=== PATIENT | female | born 1960 | race African-American/Black ===

== ENCOUNTER → 2017-08-20 | Outpatient (CLI) | payer OTHER ==
[~2017-08-20] MED LIST: BENA20TA PO; HYDR-2768 PO; POTA10IN2 PO; RED600TA PO; VITA200017 PO; WARF-20 PO; WARF5TAB PO
[2017-08-20 10:34] LABS: INTERNATIONAL NORMALIZED RATIO 2.6 RATIO; PROTHROMBIN TIME - PATIENT 25.9 SEC (9.8-11.6)
== END ==
LOC: HLAB 10:01
PROVIDERS: ATTEND Internal Medicine
DX: Z79.01 Long term (current) use of anticoagulants (principal)
CPT/HCPCS: 36415; 85610